=== PATIENT | male | born 1975 | race Two or more races ===

== ENCOUNTER 2017-07-04 02:19 | Emergency (ER) | payer OTHER ==
[~2017-07-04] VITALS: Ht 175.3 cm; Wt 80.0 kg
[~2017-07-04 02:19] MED LIST: AMOX1TAB67 PO; HYDR-762 PO
[2017-07-04 02:20] VITALS: Ht 175.3 cm; Wt 80.0 kg
--- NOTE | 2017-07-04 03:24 | ERA ---
ER Documentation Chief Complaint Date/Time DATE: 07/04/17 TIME: 03:21 Chief Complaint L knee swelling/redness/tenderness x 3 days HPI Patient is a 41-year-old male who presents with 3 days of left knee redness and swelling with significant pain. Symptoms began in the prepatellar area. The patient states that he has pain with ranging of his joint. He denies fever vomiting. Patient injects heroin and methamphetamine daily. He also complains of chronic back pain for several months since he had spinal surgery for an MRSA infection. He states that he has been slightly worse for 1 month in the location of the surgery. He denies leg numbness or weakness. He denies incontinence. ROS All systems reviewed and are negative except as per history of present illness. Medications Home Meds Active Scripts Oxycodone HCl/Acetaminophen (Percocet 5-325 mg Tablet) 1 Each Tablet, 1 EACH PO Q4H WHILE AWAKE, #14 TAB Prov:ATUL RUSSELL MD 07/04/17 Cephalexin* (Keflex*) 500 Mg Capsule, 500 MG PO QID for 10 Days, CAP Prov:ATUL RUSSELL MD 07/04/17 Sulfamethoxazole/Trimethoprim* (Bactrim Ds* Tablet) 1 Each Tablet, 1 TAB PO BID , #20 TAB Prov:ATUL RUSSELL MD 07/04/17 Hydrocodone Bit-Acetaminophen* ([place]*) 10-325 Mg Tablet, 1 TAB PO Q4H Y for PAIN, #20 TAB Prov:EDUARDO GANT 12/04/15 Amoxicillin-Clavulanate K* (Augmentin*) 500 Mg Tab, 500 MG PO Q8, #30 TAB Prov:EDUARDO GANT 12/04/15 Reported Medications [none] Unknown Strength No Conflict Check 12/03/15 Allergies Allergies: Coded Allergies: No Known Allergy (Unverified , 12/03/15) PMhx/Soc Past medical history: Spinal abscess Past surgical history: Washable spinal abscess Social history: Injects heroin and methamphetamine Anesthesia Reaction: No Hx Alcohol Use: No Hx Substance Use: Yes (heroine, meth) Hx Tobacco Use: Yes Smoking Status: Current some day smoker FmHx Family History: No coronary disease, No diabetes Physical Exam Vitals Vital Signs Date Time Temp Pulse Resp B/P Pulse Ox O2 Delivery O2 Flow Rate FiO2 07/04/17 03:36 98.9 94 21 106/67 97 07/04/17 02:20 98.9 124 18 123/76 97 Physical Exam Const: Alert, no acute distress Head: Atraumatic Eyes: Normal Conjunctiva, No pallor, no icterus ENT: Normal External Ears, Nose and Mouth.Mucous membranes moist Neck: Full range of motion..~ No meningismus. Resp: Clear to auscultation bilaterally, No wheezes, no rales Cardio: Tachycardia, regular rhythm, no murmurs Abd: Soft, non tender, non distended. Skin: No petechiae or rashes Back: No midline or flank tenderness Ext: No cyanosis, or edema. 8 cm area of erythema with tenderness overlying the left patella. Small joint effusion. Prepatellar tenderness. Mild pain with passive range of motion. Neur: Awake and alert, Cranial nerves II through XII intact bilaterally, strength and sensation full in 4 extremities. Psych: Normal Mood and Affect Result Diagram: 07/04/17 0354 07/04/17 0354 Results 24 hrs Laboratory Tests Test 07/04/17 03:54 White Blood Count 15.110^3/ul Red Blood Count 4.4610^6/ul Hemoglobin 12.2g/dl Hematocrit 36.9% Mean Corpuscular Volume 82.7fl Mean Corpuscular Hemoglobin 27.4pg Mean Corpuscular Hemoglobin Concent 33.1g/dl Red Cell Distribution Width 14.7% Platelet Count 87575^3/UL Mean Platelet Volume 10.1fl Neutrophils % 74.5% Lymphocytes % 14.9% Monocytes % 9.2% Eosinophils % 0.7% Basophils % 0.2% Nucleated Red Blood Cells % 0.0/100WBC Neutrophils # 11.310^3/ul Lymphocytes # 2.310^3/ul Monocytes # 1.410^3/ul Eosinophils # 0.110^3/ul Basophils # 0.010^3/ul Nucleated Red Blood Cells # 0.010^3/ul Prothrombin Time 14.4Sec Prothrombin Time Ratio 1.1 INR International Normalized Ratio 1.12 Activated Partial Thromboplast Time 34.2Sec Sodium Level 136mmol/L Potassium Level 3.9mmol/L Chloride Level 100mmol/L Carbon Dioxide Level 28mmol/L Anion Gap 12 Blood Urea Nitrogen 12mg/dl Creatinine 1.02mg/dl Glucose Level 123mg/dl Calcium Level 8.5mg/dl Creatine Kinase 26IU/L Current Medications Medications (Trade) Dose Ordered Sig/Maryjo Route PRN Reason Start Time Stop Time Status Last Admin Dose Admin Sodium Chloride 1,000 ml @ 1,000 mls/hr Q1H ONCE IV 07/04/17 03:30 07/04/17 04:29 DC 07/04/17 03:54 Vancomycin HCl 250 ml @ 125 mls/hr ONCE IVPB 07/04/17 03:30 07/04/17 05:29 DC 07/04/17 04:22 Ceftriaxone Sodium (Rocephin) 50 ml @ 100 mls/hr ONCE ONCE IVPB 07/04/17 03:30 07/04/17 03:59 DC 07/04/17 03:54 Lidocaine/ Epinephrine (Xylocaine 1%/ Epi (Pf)) 30 ml ONCE STAT INJ 07/04/17 03:28 07/04/17 03:29 DC Lidocaine/ Epinephrine (Xylocaine 2%/ Epi Mpf(Sdv)) 20 ml ONCE INJ 07/04/17 03:55 07/04/17 04:30 DC 07/04/17 04:29 Procedures/MDM Procedure: Knee arthrocentesis. Patient was consented in writing for procedure. His left knee was cleaned with Betadine. 4 cc of 2% lidocaine with epinephrine were injected subcutaneously in an area without erythema on the superior lateral margin of the patella. Using sterile technique and sterile gloves, an 18-gauge needle was passed through a non-cellulitic area into the joint space. No fluid was able to be aspirated, but I was able to easily push a small amount of lidocaine into the joint space, which confirmed adequate needle placement. The prepatellar space was cleaned with Betadine. 2 cc of 2% lidocaine with epinephrine were injected subcutaneously. A needle was passed into the soft tissue over the area of greatest tenderness and fluctuance without ability to aspirate any purulent fluid. Small amount of serosanguineous fluid was aspirated. Procedure was well-tolerated. MDM: Patient is a 41-year-old male who presents with pain and erythema over the left knee. An arthrocentesis was performed to exclude septic joint and there is no joint fluid could be aspirated. Patient did not have significant pain with passive ranging of the joint, but I did consider that his exam may be complicated by recent drug use. I also considered the possibility of septic bursitis and attempted needle aspiration of the prepatellar bursa without drainage of purulent fluid. Patient was given a dose of IV vancomycin and ceftriaxone. I will discharge him with prescriptions for Bactrim and Keflex. I have advised him on return precautions in case of worsening symptoms or fever. The patient does have leukocytosis and tachycardia, but recently injected methamphetamine. His pulse improved with IV fluids. I do not believe that the patient has sepsis. He has no heart murmur. There are no other findings to suggest septic emboli or hematogenous seeding. He is currently well -appearing and has capacity for self-care. He was advised on strict return precautions. Although the patient abuses opiate medications, I do believe that it is appropriate to give him a short course of Percocet for pain. Departure Diagnosis: Primary Impression: Cellulitis of knee, left Additional Impression: Drug abuse Condition: ATUL Durán MD Jul 04, 2017 03:23
[2017-07-04] MEDS ORDERED: LIDOCAINE 1%/EPI 30 ML INJ INJ STA (03:28)
[2017-07-04] MEDS ORDERED: CEFTRIAXONE 1 GM/50 ML (PMX) 50 ML IVPB ONE (03:30)
[2017-07-04] MEDS ORDERED: VANCOMYCIN 1 GM (PMX) 250 ML IVPB SCH (03:30)
[2017-07-04] MEDS ORDERED: SOD CHLORIDE 0.9% 1,000 ML IV ONE (03:30)
[2017-07-04] MEDS ORDERED: LIDOCAINE 2%/EPI MPF (SDV) 20 ML VIAL INJ SCH (03:55)
[2017-07-04 04:12] LABS: BASOPHILS % 0.2 % (0.0-2.0); EOSINOPHILS # 0.1 10^3/ul (0.0-0.5); EOSINOPHILS % 0.7 % (0.0-7.0); HEMATOCRIT 36.9 % (42.0-52.0); HEMOGLOBIN 12.2 g/dl (14.0-18.0); LYMPHOCYTES # 2.3 10^3/ul (0.8-2.9); LYMPHOCYTES % 14.9 % (15.0-51.0); MEAN CORPUSCULAR HEMOGLOBIN 27.4 pg (29.0-33.0); MEAN CORPUSCULAR HGB CONC 33.1 g/dl (32.0-37.0); MEAN CORPUSCULAR VOLUME 82.7 fl (82.0-101.0); MEAN PLATELET VOLUME 10.1 fl (7.4-10.4); MONOCYTE # 1.4 10^3/ul (0.3-0.9); MONOCYTES % 9.2 % (0.0-11.0); NEUTROPHIL # 11.3 10^3/ul (1.6-7.5); NEUTROPHILS % 74.5 % (39.0-77.0); PLATELET COUNT 210 10^3/UL (140-415); RED BLOOD COUNT 4.46 10^6/ul (4.70-6.10); RED CELL DISTRIBUTION WIDTH 14.7 % (11.5-14.5); WHITE BLOOD COUNT 15.1 10^3/ul (4.8-10.8)
[2017-07-04 04:20] LABS: CALCIUM 8.5 mg/dl (8.4-10.2); CREATININE 1.02 mg/dl (0.61-1.24); POTASSIUM 3.9 mmol/L (3.5-5.1)
[2017-07-04] MEDS ORDERED: SULF1TAB31 PO (05:19)
[2017-07-04] MEDS ORDERED: OXYC-279 PO (05:19)
[2017-07-04] MEDS ORDERED: CEPH-443 PO (05:19)
[2017-07-04 05:23] LABS: INR 1.12; PROTIME 14.4 Sec (12.2-14.2); PT RATIO 1.1
[2017-07-04 05:24] LABS: PARTIAL THROMBOPLASTIN TIME 34.2 Sec (25.0-35.0)
[2017-07-04 06:58] VITALS: BP 113/65; PULSE 70; RESP 17; TEMP 98.3
== END 2017-07-04 06:59 | disposition home or self-care (01) ==
LOC: FTE 02:19 → E/R 06:59
DX: L03.116 Cellulitis of left lower limb (principal); F11.10 Opioid abuse, uncomplicated; F15.10 Other stimulant abuse, uncomplicated; F17.210 Nicotine dependence, cigarettes, uncomplicated; R07.9 Chest pain, unspecified
CPT/HCPCS: 20610; 36415; 80048; 82550; 85025; 85610; 85730; 87040; 96374; 96375; J0696; J3370; J7030; Z7502; Z7610

== ENCOUNTER 2018-03-20 05:44 | Emergency (ER) | END 2018-03-20 12:00 | disposition home or self-care (01) ==

== ENCOUNTER 2018-10-28 14:23 | Emergency (ER) | payer BC, OTHER ==
[~2018-10-28] VITALS: Ht 170.2 cm; Wt 70.0 kg
[~2018-10-28 14:23] MED LIST changes: +CARI350T PO; +CEPH-443 PO; +HYDR-3980 PO; +IBUP800T48 PO; +OXYC-279 PO; +SULF1TAB31 PO
[2018-10-28 14:31] VITALS: Ht 170.2 cm; Wt 70.0 kg
[2018-10-28] MEDS ORDERED: ONDANSETRON 4 MG INJ IV STA ×2 (19:06→21:46)
[2018-10-28] MEDS ORDERED: HYDROmorphONE 1 MG/ML SYG IV STA ×2 (19:06→21:46)
--- NOTE | 2018-10-28 19:17 | ERD ---
ER Documentation Chief Complaint Chief Complaint WORSENING BACK PAIN X 2 WEEKS. STATES NUMBNESS IN LE'S. LAMINECTOMY 2017 HPI This is a 43-year-old male who presents with back pain. 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 He indicates that for the past 2 weeks he has been having significant numbness of his left lower extremity and right lower extre mity. He also has lost control of his bladder and bowel movements. He was seen and evaluated at [facility] 4 days prior to arrival where he underwent an MRI. The patient was seen by the neurosurgeon who indicated that the patient required transfer to [facility] as this is where his insurance was capitated to. He was subsequently discharged from the hospital. He indicates he returned to [facility] today as this is where he was told he needs to receive definitive care. He states his back pain is 10 out of 10 in intensity. He is unable to ambulate due to the severity of the pain. He said no fevers no shaking or chills. The patient indicates he still utilizes intravenous heroin and crystal meth. His last dose of heroin was at 6 AM this morning, 13 hours prior to arrival. ROS All systems reviewed and are negative except as per history of present illness. Medications Home Meds Active Scripts Cephalexin* (Keflex*) 500 Mg Capsule, 500 MG PO QID for 5 Days, CAP Prov:MAYNOR FREEMAN MD 10/28/18 Cyclobenzaprine Hcl* (Cyclobenzaprine Hcl*) 10 Mg Tablet, 10 MG PO TID, #15 TAB Prov:AMYNOR FREEMAN MD 10/28/18 Methylprednisolone* (Medrol* DOSE PACK) 4 Mg/Dose-Pack Tab.ds.pk, 4 MG PO . DIRECTED, #1 PACKET Prov:MAYNOR FREEMAN MD 10/28/18 Reported Medications Carisoprodol* (Carisoprodol*) 350 Mg Tablet, 350 MG PO NEEDED PRN for MUSCLE SPASMS, TAB 10/28/18 Discontinued Reported Medications [none] Unknown Strength No Conflict Check 12/03/15 Discontinued Scripts Ibuprofen* (Motrin*) 800 Mg Tab, 800 MG PO Q6H PRN for PAIN AND OR ELEVATED TEMP, #30 TAB Prov:CONRADO CAMARILLO DO 03/20/18 Carisoprodol* (Soma*) 350 Mg Tablet, 350 MG PO TID PRN for MUSCLE SPASMS, #15 TAB Prov:CONRADO CAMARILLO DO 03/20/18 Hydrocodone/Acetaminophen ([place] 10-325 Tablet) 1 Each Tablet, 1 TAB PO Q6H PRN for PAIN, #20 TAB Prov:CONRADO CAMARILLO. DO 03/20/18 Oxycodone HCl/Acetaminophen (Percocet 5-325 mg Tablet) 1 Each Tablet, 1 EACH PO Q4H WHILE AWAKE, #14 TAB Prov:ATUL RUSSELL MD 07/04/17 Cephalexin* (Keflex*) 500 Mg Capsule, 500 MG PO QID for 10 Days, CAP Prov:ATUL RUSSELL MD 07/04/17 Sulfamethoxazole/Trimethoprim* (Bactrim Ds* Tablet) 1 Each Tablet, 1 TAB PO BID, #20 TAB Prov:ATUL RUSSELL MD 07/04/17 Hydrocodone Bit-Acetaminophen* ([place]*) 10-325 Mg Tablet, 1 TAB PO Q4H PRN for PAIN, #20 TAB Prov:EDUARDO GANT 12/04/15 Amoxicillin-Clavulanate K* (Augmentin*) 500 Mg Tab, 500 MG PO Q8, #30 TAB Prov:EDUARDO GANT 12/04/15 Allergies Allergies: Coded Allergies: No Known Allergy (Unverified , 10/28/18) PMhx/Soc History of Surgery: Yes (spinal surgery, left arm, eye surgery) Anesthesia Reaction: No Hx Neurological Disorder: No Hx Respiratory Disorders: No Hx Cardiac Disorders: No Hx Psychiatric Problems: Yes (Drug abuse) Hx Miscellaneous Medical Probl: Yes (MRSA spine) Hx Alcohol Use: No Hx Substance Use: Yes (heroine, meth) Hx Tobacco Use: Yes Smoking Status: Current some day smoker Physical Exam Vitals Vital Signs Date Temp Pulse Resp B/P (MAP) Pulse Ox O2 O2 Flow FiO2 Time Delivery Rate 10/28/18 89 24 135/68 100 Room Air 19:20 (90) 10/28/18 97.5 103 16 156/78 100 Room Air 17:30 (104) 10/28/18 97.8 125 16 149/95 99 14:31 (113) Physical Exam Constitutional:Well-developed. Well-nourished. HEENT:Normocephalic. Atraumatic.Pupils were equal round reactive to light. Moist mucous membranes.No tonsillar exudates. Neck: No nuchal rigidity. No lymphadenopathy. No posterior cervical spine tenderness or step-offs. Respiratory: Not using accessory muscles of respiration.Lungs were clear to auscultation bilaterally. No rhonchi. No rales. No wheezing. Cardiovascular: Regular rate regular rhythm.No murmurs. No rubs were appreciated.S1, S2 normal. Distal pulses are palpable 2+ bilaterally. GI: Abdomen was soft. Nontender. Non Distended. No pulsatile abdominal masses or bruits. No rebound. No guarding. Bowel sounds were present and normal. Muscle skeletal: Significant scoliosis of the spine with no specific tenderness with palpation or percussion of the thoracic or lumbar spinous processes. Straight leg test positive bilaterally Rectal: Normal specter tone. No gross blood Skin: No petechia, no purpura. No lesions on the palms or the soles of the feet. No maculopapular rash. NEURO: Patient was alert, awake, orientated x3.No facial droop. Gait observed and patient ambulates with a slow steady gait in a hunched position due to the severity of the pain.Speech had regular rate and rhythm. No focal neurological deficits. Result Diagram: 10/28/18191410/28/181914 Results 24 hrs Laboratory Tests Test 10/28/18 19:15 White Blood Count 7.9 10^3/ul Red Blood Count 4.71 10^6/ul Hemoglobin 13.4 g/dl Hematocrit 40.8 % Mean Corpuscular Volume 86.6 fl Mean Corpuscular Hemoglobin 28.5 pg Mean Corpuscular Hemoglobin Concent 32.8 g/dl Red Cell Distribution Width 12.7 % Platelet Count 256 10^3/UL Mean Platelet Volume 9.7 fl Immature Granulocytes % 0.400 % Neutrophils % 60.1 % Lymphocytes % 28.1 % Monocytes % 8.2 % Eosinophils % 2.8 % Basophils % 0.4 % Nucleated Red Blood Cells % 0.0 /100WBC Immature Granulocytes # 0.030 10^3/ul Neutrophils # 4.8 10^3/ul Lymphocytes # 2.2 10^3/ul Monocytes # 0.7 10^3/ul Eosinophils # 0.2 10^3/ul Basophils # 0.0 10^3/ul Nucleated Red Blood Cells # 0.0 10^3/ul Prothrombin Time 11.9 Sec Prothrombin Time Ratio 0.9 INR International Normalized Ratio 0.87 Activated Partial Thromboplast Time 33.1 Sec Sodium Level 139 mmol/L Potassium Level 4.9 mmol/L Chloride Level 98 mmol/L Carbon Dioxide Level 33 mmol/L Anion Gap 8 Blood Urea Nitrogen 17 mg/dl Creatinine 0.80 mg/dl Est Glomerular Filtrat Rate mL/min > 60 mL/min Glucose Level 100 mg/dl Calcium Level 9.6 mg/dl Total Bilirubin 0.6 mg/dl Direct Bilirubin 0.00 mg/dl Indirect Bilirubin 0.6 mg/dl Aspartate Amino Transf (AST/SGOT) 26 IU/L Alanine Aminotransferase (ALT/SGPT) 20 IU/L Alkaline Phosphatase 80 IU/L Total Protein 8.5 g/dl Albumin 4.5 g/dl Globulin 4.00 g/dl Albumin/Globulin Ratio 1.12 Current Medications Medications Dose Sig/Maryjo Start Time Status Last (Trade) Ordered Route PRN Stop Time Admin Dose Reason Admin 1 mg ONCE STAT 10/28/18 DC 10/28/18 Hydromorphone IV 19:06 19:30 HCl 10/28/18 19:09 (Dilaudid) Ondansetron 4 mg ONCE STAT 10/28/18 DC 10/28/18 HCl (Zofran IV 19:06 19:30 Inj) 10/28/18 19:09 125 mg ONCE ONCE 10/28/18 DC 10/28/18 Methylprednis IV 19:30 19:30 olone Sodium 10/28/18 19:31 Succinate (Solu-Medrol) 2 mg ONCE STAT 10/28/18 DC 10/28/18 Hydromorphone IV 21:46 21:55 HCl 10/28/18 21:47 (Dilaudid) Ondansetron 4 mg ONCE STAT 10/28/18 DC HCl (Zofran IV 21:46 Inj) 10/28/18 21:47 Cefazolin 50 ml @ ONCE IVPB 10/29/18 Sodium 100 mls/hr 00:00 10/29/18 00:29 Procedures/MDM The patient presented to the emergency department with back pain. My differential diagnosis included but was not limited to spinal origins of the pain such as fracture, osteomyelitis, epidural abscess, neoplasm, spondylolishtesis, discogenic, cauda equina syndrome or musculoligamentous. Nonspinal causes such as AAA, upper UTI, renal colic, aortic dissection, abdominal neoplasm were also considered as an etiology into their pain. I contacted [facility] was able to receive a report of the patient's MRI of his lumbar spine without contrast that had been performed at [facility] on October 24, 2017 4 days prior to arrival. The patient had marked kyphotic deformity at the L2-L3 level with posterior displacement of L2 on L3. There is stenosis of the spinal canal along the entire length of L2. The patient had a prior multilevel laminectomy. The patient had a loculated fluid collection present posterior to the thecal sac extending from L5 through S1. The patient had L5-S1 bulging of the annulus without apparent compromise of the spinal canal. At L2-L3 there was bulging of the annulus. The radiologist suggested marked atrophy of the distal cord. The conus medullaris was not well seen. There is no signs of cauda equina syndrome. I indicated to the patient that at this time there is no signs of an emergent process that would require neurosurgical intervention. He was given the names of various neurosurgeons as he can follow up with on an outpatient basis. He was given analgesic medication in the emergency department being Dilaudid and Zofran. The patient was discharged home in fair condition. They were instructed to return to the emergency department at any time if there was any worsening of their condition. The patient stated they would follow up with their PCP in the next 24-48 hours to initiate a suitable medication regimen under the care of their PCP as well as to allow their PCP to monitor any drug reactions. The patient was discharged home with prescriptions after they gave informed consent to the new medication. They were also fully informed by myself on the adverse effects and adverse drug interactions in order to provide adequate safeguards to prevent possible adverse reactions to medications. At the time of discharge the patient is now complaining of an ingrown hair on his face which he stated he began to pick and appear to have purulent drainage. This is roughly 0.5 cm in diameter. In order to prevent secondary bacterial infection the patient will be sent home with Keflex. Departure Diagnosis: Primary Impression: Lumbar back pain with radiculopathy affecting lower extremity Additional Impression: Facial cellulitis Condition: Fair MAYNOR FREEMAN MD Oct 28, 2018 19:17
[2018-10-28] MEDS ORDERED: HYDR-4011 PO (19:24)
[2018-10-28] MEDS ORDERED: MED4DP PO (19:24)
[2018-10-28] MEDS ORDERED: CYCL10TA7 PO (19:24)
[2018-10-28] MEDS ORDERED: METHYLPREDNISOLONE 125 MG INJ IV ONE (19:30)
[2018-10-28] MEDS ORDERED: CARI350T29 PO (19:47)
[2018-10-28] MEDS ORDERED: CEPH-443 PO (23:48)
[2018-10-28 23:50] VITALS: BP 142/89; PULSE 91; RESP 15
[2018-10-29] MEDS ORDERED: CEFAZOLIN 1 GM/50 ML (PMX) 50 ML IVPB SCH
== END 2018-10-28 23:50 | disposition home or self-care (01) ==
LOC: FTE 14:23 → E/R 23:50
DX: M54.16 Radiculopathy, lumbar region (principal); L03.211 Cellulitis of face; F17.210 Nicotine dependence, cigarettes, uncomplicated
CPT/HCPCS: 80053; 85025; 85610; 85730; 96374; 96375; J1170; J2405; J2930; Z7502; J0690